=== PATIENT | female | born 1950 | race Caucasian/White ===

== ENCOUNTER 2022-09-16 11:31 | Outpatient (CLI) | payer MEDICARE, BC ==
[2022-09-16 13:24] LABS: #Eosinphils 0.3 10x3/uL (0.0-0.5); #Monocytes 0.5 10x3/uL (0.0-1.1); #Neutrophils 3.6 10x3/uL (1.5-8.4); %Basophils 0.3 % (0.0-2.0); %Eosinophils 4.7 % (0.0-6.0); %Lymphocytes 27.3 % (18.0-47.0); %Monocytes 7.7 % (0.0-10.0); %Neutrophils 59.8 % (40.0-75.0); Hemoglobin 12.6 g/dL (12.0-15.5); Mean Corpuscular HGB CONC 32.6 g/dL (32.0-36.0); Mean Corpuscular Hemoglobin 29.3 pg (27.0-33.0); Mean Corpuscular Volume 89.8 fl (81.6-98.3); Mean Platelet Volume 9.7 fl (7.4-10.4); Platelet Count 251 10x3/uL (150-450); RBC Distribution Width 12.3 % (11.5-14.5)
[2022-09-16 13:35] LABS: INR-International Normal Ratio 0.9; Prothrombin Time 10.3 sec (9.5-12.1)
[2022-09-16 13:45] LABS: Anion Gap 13 mmol/L (10-20); BUN (Urea Nitrogen) 26 mg/dL (9.8-20.1); Calc. Creatinine Clearance 0 mL/min (70-130); Calcium 9.3 mg/dL (7.8-10.44); Carbon Dioxide 24 mmol/L (23-31); Chloride 107 mmol/L (98-107); Estimated GFR 78; Glucose 87 mg/dL (83-110); Potassium 4.3 mmol/L (3.5-5.1); Sodium 140 mmol/L (136-145)
== END 2022-09-16 11:32 | disposition home or self-care (01) ==
LOC: LABBT 11:31
PROVIDERS: ATTEND Orthopaedic Surgery
DX: Z01.818 Encounter for other preprocedural examination (principal); M17.0 Bilateral primary osteoarthritis of knee
CPT/HCPCS: 80048; 85025; 85610; 87081; 93005; 93010

== ENCOUNTER 2022-09-27 09:32 | Inpatient (IN) | payer MEDICARE, BC ==
[2022-09-27] MEDS ORDERED: Tranexamic Acid 1,000 MG/10 ML VIAL ONE (10:31)
[2022-09-27] MEDS ORDERED: Sodium Chloride 0.9% 100 ML ONE (10:31)
[2022-09-27] MEDS ORDERED: Vancomycin 1 GM/200 ML (FROZEN) BAG ONE (10:31)
[2022-09-27] MEDS ORDERED: Midazolam HCl 2 mg/2 ml Vial ONE (11:03)
[2022-09-27] MEDS ORDERED: Fentanyl 100 MCG/2 ML VIAL ONE (11:03)
[2022-09-27] MEDS ORDERED: Bupivacaine PF 0.5% 30 ML VIAL ONE ×2 (11:03→14:04)
[2022-09-27 11:39] LABS: SARS-CoV-2 NAA Rapid Test Not Detected (NotDetected)
[2022-09-27] MEDS ORDERED: Bupivacaine HCl 0.5%/Epinephrine 1:200,000/PF 30 ml Vial ONE (11:40)
[2022-09-27] MEDS ORDERED: Fentanyl 100 MCG/2 ML VIAL SLOW IVP PRN (11:51)
[2022-09-27] MEDS ORDERED: Promethazine HCl 25 MG/ML VIAL IM PRN ×2 (12:00→13:18)
[2022-09-27] MEDS ORDERED: Ropivacaine 0.2% 550 ML 550 ML NERVE BLCK SCH (12:00)
[2022-09-27] MEDS ORDERED: HYDROcodone/Acetaminophen 10/325 mg Tablet PO PRN (12:00)
[2022-09-27] MEDS ORDERED: Ondansetron PF 4 MG/2 ML Vial IVP PRN ×2 (12:00→13:18)
[2022-09-27] MEDS ORDERED: traMADol HCl 50 MG TAB PO PRN ×2 (12:00)
[2022-09-27] MEDS ORDERED: Zolpidem Tartrate 5 MG TAB PO PRN ×2 (12:00→13:18)
[2022-09-27] MEDS ORDERED: Propofol 500 MG/50 ML VIAL ONE (12:20)
[2022-09-27] MEDS ORDERED: fentaNYL PF 100 MCG/2 ML SYRINGE ONE (12:53)
[2022-09-27] MEDS ORDERED: diphenhydrAMINE 25 MG CAP PO PRN ×2 (13:18→14:29)
[2022-09-27] MEDS ORDERED: Acetaminophen 325 MG TAB PO PRN (13:18)
[2022-09-27] MEDS ORDERED: Loratadine 10 MG TAB PO PRN (13:19)
[2022-09-27] MEDS ORDERED: PHENYLEPHRINE-NS 100 MCG/ML 10 ML SYRINGE ONE (13:23)
[2022-09-27] MEDS ORDERED: Ondansetron PF 4 MG/2 ML Vial ONE ×2 (13:23→15:44)
[2022-09-27] MEDS ORDERED: PROPOFOL 200 MG/20 ML VIAL ONE (13:23)
[2022-09-27] MEDS ORDERED: Promethazine HCl 25 MG/ML VIAL ONE (16:34)
[2022-09-27] MEDS: Ketorolac Tromethamine 30 MG/ML VIAL IVP SCH ×3 (18:27→23:27)
[2022-09-27] MEDS: CEFAZOLIN 2 GM in Sodium Chloride 0.9% 100 ML IVPB SCH ×2 (20:29→21:49)
[2022-09-27] MEDS: Sodium Chloride 0.9% 1,000 ML IV SCH ×2 (20:29→23:27)
[2022-09-27] MEDS: Aspirin 81 mg Enteric Coated Tablet PO SCH (21:49)
[2022-09-27] MEDS: Valsartan 80 MG TAB PO SCH (21:49)
[2022-09-27] MEDS: HYDROcodone/Acetaminophen 10/325 mg Tablet PO PRN (22:05)
[2022-09-27 23:16] VITALS: BMI 25.8
[2022-09-28] MEDS: Ketorolac Tromethamine 30 MG/ML VIAL IVP SCH ×2 (05:45→11:45)
[2022-09-28] MEDS: Ferrous Gluconate 324 MG TAB PO SCH ×2 (08:40→18:09)
[2022-09-28] MEDS: Multivitamin W/ Minerals 1 TAB PO SCH ×2 (08:41→08:45)
[2022-09-28] MEDS: Cholecalciferol 1,000 UNITS (25 MCG) TAB PO SCH (08:41)
[2022-09-28] MEDS: Senokot S 8.6-50 MG TAB PO SCH ×2 (08:41→21:11)
[2022-09-28] MEDS: HYDROcodone/Acetaminophen 10/325 mg Tablet PO PRN ×3 (08:41→23:04)
[2022-09-28] MEDS: Aspirin 81 mg Enteric Coated Tablet PO SCH ×2 (08:41→21:12)
[2022-09-28 10:02] LABS: Hemoglobin 10.5 g/dL (12.0-16.0); Mean Corpuscular HGB CONC 33.7 g/dL (32.0-36.0); Mean Corpuscular Hemoglobin 30.6 pg (27.0-31.0); Mean Corpuscular Volume 90.8 fl (78.0-98.0); Mean Platelet Volume 7.6 fL (7.4-10.4); Platelet Count 220 10x3/uL (130-400); RBC Distribution Width 11.5 % (11.5-14.5); Red Blood Cell (RBC) Count 3.42 mill/uL (4.20-5.40)
[2022-09-28] MEDS: Sodium Chloride 0.9% 1,000 ML IV SCH ×2 (13:16→21:13)
[2022-09-28] MEDS ORDERED: Ondansetron ODT 4 MG TAB PO PRN (17:20)
[2022-09-28] MEDS ORDERED: Ondansetron ODT 4 MG TAB PO SCH (17:30)
[2022-09-28] MEDS: Valsartan 80 MG TAB PO SCH (21:12)
[2022-09-29] MEDS: Sodium Chloride 0.9% 1,000 ML IV SCH (04:35)
[2022-09-29 06:12] LABS: Hemoglobin 9.3 g/dL (12.0-16.0); Mean Corpuscular HGB CONC 32.9 g/dL (32.0-36.0); Mean Corpuscular Hemoglobin 29.8 pg (27.0-31.0); Mean Corpuscular Volume 90.6 fl (78.0-98.0); Mean Platelet Volume 7.8 fL (7.4-10.4); Platelet Count 174 10x3/uL (130-400); RBC Distribution Width 11.6 % (11.5-14.5); Red Blood Cell (RBC) Count 3.13 mill/uL (4.20-5.40); White Blood Cell (WBC) Count 8.2 10x3/uL (4.8-10.8)
[2022-09-29] MEDS: Multivitamin W/ Minerals 1 TAB PO SCH (08:21)
[2022-09-29] MEDS: Ferrous Gluconate 324 MG TAB PO SCH (08:22)
[2022-09-29] MEDS: Aspirin 81 mg Enteric Coated Tablet PO SCH (08:22)
[2022-09-29] MEDS: Senokot S 8.6-50 MG TAB PO SCH (08:23)
[2022-09-29] MEDS: Cholecalciferol 1,000 UNITS (25 MCG) TAB PO SCH (08:23)
[2022-09-29] MEDS: HYDROcodone/Acetaminophen 10/325 mg Tablet PO PRN (08:24)
[2022-09-29 12:10] VITALS: BP 170/71; TEMP 97.8
[2022-09-30] MEDS ORDERED: FLU VACC QS2022-23(65YR UP)/PF 240 MCG/0.7 ML SYRINGE IM ONE (23:45)
== END 2022-09-29 13:37 | disposition home health service (06) | DRG 470 ==
LOC: SDC 09:32 → SJJU 16:51 → OBSVTOIN 09-29 06:49
PROVIDERS: ADMIT Orthopaedic Surgery; ATTEND Orthopaedic Surgery
PROC: 0SRC0J9 Replacement of Right Knee Joint with Synthetic Substitute, Cemented, Open Approach (ICD-10-PCS; principal; 2022-09-27)
PROC: 8E0YXBZ Computer Assisted Procedure of Lower Extremity (ICD-10-PCS; 2022-09-27)
DX: M17.11 Unilateral primary osteoarthritis, right knee (principal); R11.2 Nausea with vomiting, unspecified; G89.29 Other chronic pain; Z20.822 Contact with and (suspected) exposure to COVID-19; Z88.8 Allergy status to other drugs, medicaments and biological substances
CPT/HCPCS: 36415; 85027; 96374; 96375; 96376; A4306; C1713; C1776; G0378; J1885; J2250; J2405; J2550; J2704; J2795; J3010; J3370-JW; J3490; Q0162; S0020; U0002

== ENCOUNTER 2023-01-04 10:10 | Outpatient (CLI) | payer MEDICARE, BC ==
[2023-01-04 11:50] LABS: #Eosinphils 0.3 10x3/uL (0.0-0.5); #Monocytes 0.4 10x3/uL (0.0-1.1); #Neutrophils 3.1 10x3/uL (1.5-8.4); %Basophils 0.6 % (0.0-2.0); %Eosinophils 6.6 % (0.0-6.0); %Lymphocytes 24.9 % (18.0-47.0); %Monocytes 7.9 % (0.0-10.0); %Neutrophils 59.8 % (40.0-75.0); Hemoglobin 12.6 g/dL (12.0-15.5); Mean Corpuscular HGB CONC 32.2 g/dL (32.0-36.0); Mean Corpuscular Volume 86.9 fl (81.6-98.3); Mean Platelet Volume 9.7 fl (7.4-10.4); Platelet Count 254 10x3/uL (150-450); RBC Distribution Width 13.2 % (11.5-14.5); White Blood Cell (WBC) Count 5.2 10x3/uL (3.5-10.5)
[2023-01-04 11:59] LABS: Anion Gap 13 mmol/L (10-20); BUN (Urea Nitrogen) 25 mg/dL (9.8-20.1); Calc. Creatinine Clearance 0 mL/min (70-130); Calcium 9.4 mg/dL (7.8-10.44); Carbon Dioxide 25 mmol/L (23-31); Chloride 108 mmol/L (98-107); Estimated GFR 75; Glucose 92 mg/dL (83-110); Potassium 4.5 mmol/L (3.5-5.1); Sodium 141 mmol/L (136-145)
[2023-01-04 12:04] LABS: INR-International Normal Ratio 0.9; Prothrombin Time 10.1 sec (9.5-12.1)
== END 2023-01-04 10:11 | disposition home or self-care (01) ==
LOC: LABBT 10:10
PROVIDERS: ATTEND Orthopaedic Surgery
DX: Z01.818 Encounter for other preprocedural examination (principal); M17.12 Unilateral primary osteoarthritis, left knee
CPT/HCPCS: 80048; 85025; 85610; 87081; 93005; 93010

== ENCOUNTER 2023-01-09 06:26 | Inpatient (IN) | payer MEDICARE, BC ==
[2023-01-04 10:40] VITALS: BMI 26.6
[2023-01-09] MEDS ORDERED: Vancomycin (BATCH) 1.5 GRAM/300 ML BAG ONE (08:29)
[2023-01-09] MEDS ORDERED: Sodium Chloride 0.9% 100 ML ONE ×2 (08:29→08:57)
[2023-01-09] MEDS ORDERED: Tranexamic Acid 1,000 MG/10 ML VIAL ONE (08:29)
[2023-01-09] MEDS ORDERED: Bupivacaine PF 0.5% 30 ML VIAL ONE ×2 (08:30→08:52)
[2023-01-09] MEDS ORDERED: EPINEPHrine 1 MG/ML AMP ONE (08:31)
[2023-01-09] MEDS ORDERED: Midazolam HCl 2 mg/2 ml Vial ONE (08:36)
[2023-01-09] MEDS ORDERED: CEFAZOLIN 2 GM VIAL ONE (08:57)
[2023-01-09] MEDS ORDERED: Ondansetron PF 4 MG/2 ML Vial IVP PRN (09:12)
[2023-01-09] MEDS ORDERED: HYDROcodone/Acetaminophen 10/325 mg Tablet PO PRN ×2 (09:12)
[2023-01-09] MEDS ORDERED: Zolpidem Tartrate 5 MG TAB PO PRN ×2 (09:12→11:15)
[2023-01-09] MEDS ORDERED: Promethazine HCl 25 MG/ML VIAL IM PRN ×2 (09:12→11:15)
[2023-01-09] MEDS ORDERED: Acetaminophen 325 MG TAB PO PRN (09:12)
[2023-01-09] MEDS ORDERED: diphenhydrAMINE 25 MG CAP PO PRN ×2 (09:12→09:19)
[2023-01-09] MEDS ORDERED: Loratadine 10 MG TAB PO PRN (09:13)
[2023-01-09] MEDS ORDERED: PHENYLEPHRINE-NS 100 MCG/ML 10 ML SYRINGE ONE ×2 (09:24→09:59)
[2023-01-09] MEDS ORDERED: PROPOFOL 200 MG/20 ML VIAL ONE (09:59)
[2023-01-09] MEDS ORDERED: Metoclopramide HCl 10 MG/2 ML VIAL ONE (09:59)
[2023-01-09] MEDS ORDERED: Dexamethasone 20 MG/5 ML VIAL ONE (09:59)
[2023-01-09] MEDS ORDERED: Ondansetron PF 4 MG/2 ML Vial ONE (09:59)
[2023-01-09] MEDS ORDERED: fentaNYL 50 mcg/mL 1 mL Vial SLOW IVP PRN (11:14)
[2023-01-09] MEDS ORDERED: traMADol HCl 50 MG TAB PO PRN ×2 (11:15)
[2023-01-09] MEDS ORDERED: Ropivacaine 0.2% 550 ML 550 ML NERVE BLCK SCH (11:15)
[2023-01-09] MEDS ORDERED: Promethazine HCl 25 MG/ML VIAL IM/IV PRN (11:30)
[2023-01-09] MEDS ORDERED: Ondansetron HCl/PF 4 MG/2 ML Vial IVP PRN (11:30)
[2023-01-09] MEDS: Ondansetron PF 4 MG/2 ML Vial IVP PRN ×2 (13:44→20:18)
[2023-01-09] MEDS: Ketorolac Tromethamine 30 MG/ML VIAL IVP SCH ×2 (13:44→22:32)
[2023-01-09] MEDS: Sodium Chloride 0.9% 1,000 ML IV SCH (13:44)
[2023-01-09] MEDS: HYDROcodone/Acetaminophen 10/325 mg Tablet PO PRN ×3 (14:58→21:00)
[2023-01-09] MEDS: CEFAZOLIN 2 GM in Sodium Chloride 0.9% 100 ML IVPB SCH (18:00)
[2023-01-09] MEDS: Valsartan 80 MG TAB PO SCH (20:18)
[2023-01-09] MEDS: Senokot S 8.6-50 MG TAB PO SCH (20:20)
[2023-01-09] MEDS: Ferrous Gluconate 324 MG TAB PO SCH (20:20)
[2023-01-09] MEDS: Aspirin 81 mg Enteric Coated Tablet PO SCH (20:20)
[2023-01-09] MEDS ORDERED: Aspirin 81 mg Enteric Coated Tablet PO SCH (21:00)
[2023-01-10] MEDS: CEFAZOLIN 2 GM in Sodium Chloride 0.9% 100 ML IVPB SCH (01:29)
[2023-01-10] MEDS: Ondansetron PF 4 MG/2 ML Vial IVP PRN ×3 (01:29→21:41)
[2023-01-10] MEDS: HYDROcodone/Acetaminophen 10/325 mg Tablet PO PRN (01:30)
[2023-01-10] MEDS: Sodium Chloride 0.9% 1,000 ML IV SCH ×3 (03:12→15:42)
[2023-01-10] MEDS: Ketorolac Tromethamine 30 MG/ML VIAL IVP SCH ×3 (05:37→21:40)
[2023-01-10 06:21] LABS: Hemoglobin 10.4 g/dL (12.0-16.0); Mean Corpuscular HGB CONC 34.1 g/dL (32.0-36.0); Mean Corpuscular Volume 88.1 fl (78.0-98.0); Mean Platelet Volume 7.7 fL (7.4-10.4); Platelet Count 197 10x3/uL (130-400); RBC Distribution Width 12.7 % (11.5-14.5); Red Blood Cell (RBC) Count 3.45 mill/uL (4.20-5.40); White Blood Cell (WBC) Count 9.6 10x3/uL (4.8-10.8)
[2023-01-10] MEDS: Senokot S 8.6-50 MG TAB PO SCH ×2 (09:56→21:40)
[2023-01-10] MEDS: Aspirin 81 mg Enteric Coated Tablet PO SCH ×2 (09:56→21:40)
[2023-01-10] MEDS: Cholecalciferol 1,000 UNITS (25 MCG) TAB PO SCH (10:45)
[2023-01-10] MEDS: Ferrous Gluconate 324 MG TAB PO SCH ×2 (10:46→21:40)
[2023-01-10] MEDS: Multivitamin W/ Minerals 1 TAB PO SCH (10:46)
[2023-01-10] MEDS ORDERED: Promethazine 25 MG TAB PO PRN (12:05)
[2023-01-10] MEDS ORDERED: Promethazine HCl 12.5 MG in Sodium Chloride 0.9% 50 ML IVPB PRN (12:05)
[2023-01-10] MEDS: Valsartan 80 MG TAB PO SCH (21:40)
[2023-01-11] MEDS: Sodium Chloride 0.9% 1,000 ML IV SCH ×2 (05:15→10:16)
[2023-01-11] MEDS: Ketorolac Tromethamine 30 MG/ML VIAL IVP SCH ×2 (05:52→13:26)
[2023-01-11 06:25] LABS: Hemoglobin 9.6 g/dL (12.0-16.0); Mean Corpuscular HGB CONC 33.5 g/dL (32.0-36.0); Mean Corpuscular Hemoglobin 29.8 pg (27.0-31.0); Mean Corpuscular Volume 88.9 fl (78.0-98.0); Mean Platelet Volume 8.1 fL (7.4-10.4); Platelet Count 168 10x3/uL (130-400); RBC Distribution Width 12.8 % (11.5-14.5); Red Blood Cell (RBC) Count 3.21 mill/uL (4.20-5.40); White Blood Cell (WBC) Count 7.6 10x3/uL (4.8-10.8)
[2023-01-11] MEDS: Multivitamin W/ Minerals 1 TAB PO SCH (07:19)
[2023-01-11] MEDS: Ondansetron PF 4 MG/2 ML Vial IVP PRN (07:19)
[2023-01-11] MEDS: HYDROcodone/Acetaminophen 10/325 mg Tablet PO PRN ×2 (07:19→13:28)
[2023-01-11] MEDS: Aspirin 81 mg Enteric Coated Tablet PO SCH (07:22)
[2023-01-11] MEDS: Ferrous Gluconate 324 MG TAB PO SCH (07:22)
[2023-01-11] MEDS: Senokot S 8.6-50 MG TAB PO SCH (07:22)
[2023-01-11] MEDS: Cholecalciferol 1,000 UNITS (25 MCG) TAB PO SCH (07:22)
[2023-01-11] MEDS ORDERED: Ondansetron ODT 4 MG TAB PO PRN (08:54)
[2023-01-11 17:23] VITALS: BP 150/88; TEMP 97.4
== END 2023-01-11 16:55 | disposition home health service (06) | DRG 470 ==
LOC: SDC 06:26 → SJJU 12:35 → OBSVTOIN 01-10 11:58
PROVIDERS: ADMIT Orthopaedic Surgery; ATTEND Orthopaedic Surgery
PROC: 0SRD0J9 Replacement of Left Knee Joint with Synthetic Substitute, Cemented, Open Approach (ICD-10-PCS; principal; 2023-01-09)
DX: M17.12 Unilateral primary osteoarthritis, left knee (principal); G89.29 Other chronic pain; I10 Essential (primary) hypertension; Z98.42 Cataract extraction status, left eye; Z96.651 Presence of right artificial knee joint; Z83.3 Family history of diabetes mellitus; Z82.49 Family history of ischemic heart disease and other diseases of the circulatory system; Z79.899 Other long term (current) drug therapy; Z91.09 Other allergy status, other than to drugs and biological substances
CPT/HCPCS: 36415; 85027; 96365; 96366; 96375; 96376; A4306; C1713; C1776; G0378; J0171; J1100; J1885; J2250; J2405; J2704; J2765; J2795; J3370; J3490; J7050; Q0162; S0020